=== PATIENT | male | born 1985 | race Caucasian/White ===

== ENCOUNTER 2017-04-18 13:15 | Emergency (ER) | payer BC, OTHER ==
[2017-04-18 13:19] VITALS: BP 145/92; PULSE 85; TEMP 98; BMI 24.3
[2017-04-18] MEDS ORDERED: KETOROLAC TROMETHAMINE 60 MG/2 ML VIAL IM ONE (13:54)
[2017-04-18] MEDS ORDERED: diazePAM 5 MG TABLET PO ONE (13:54)
[2017-04-18] MEDS ORDERED: KETOROLAC TROMETHAMINE 60 MG/2 ML VIAL ONE (13:55)
[2017-04-18] MEDS ORDERED: diazePAM 5 MG TABLET ONE (13:56)
--- NOTE | 2017-04-18 14:35 | PDOC ---
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 Nonradiating pain, no neurosensory deficits, no bowel or bladder difficulty incontinence or urinary retention, no saddle anesthesia, no footdrop. No history of IVDU or history of cancer. Patient also presenting with several month history of tingling to right hand. Denies any injury. REVIEW OF SYSTEMS: GENERAL: Afebrile, denies any weakness RESPIRATORY: No cough, wheezing, or hemoptysis. CARDIAC: No chest pain or shortness of breath MUSCULOSKELETAL: Pain to generalized lower back. No point tenderness. Pain worse on right than left. Tingling to the right hand. SKIN : No erythema, no bruising, no deformity. GI/: Denies any abdominal pain, no urinary difficulty, incontinence or urinary retention. RECTAL: Denies any difficulty this A.m. NEUROLOGICAL: Denies any numbness or tingling. No neurosensory deficits. PHYSICAL EXAM: GENERAL: The patient is awake, alert, and fully oriented, in no acute distress. RESPIRATORY: Lungs clear bilaterally, no rhonchi wheezes or crackles CARDIAC: S1-S2 audible, no murmur rub or gallop MUSCULOSKELETAL: Pain to generalized lower back, nonradiating, no tingling or sensory deficit. Less than 2 second cap refill, +4 popliteal and pedal pulses. GI/: Abdomen soft, nontender, nondistended. No rebound tenderness. No masses palpable. MUSCULOSKELETAL: No spinal point tenderness. Pain to the right lateral lower back, Normal reflexive and no deficits to sensation or strength. RECTAL: Normal Rectal Tone. NEUROLOGICAL: Cranial nerves II through XII grossly intact. Normal speech, normal gait. SKIN: Warm, Dry, normal turgor, no erythema, no edema no bruising. Past History - Past Medical History Allergies/Adverse Reactions: Allergies Allergy/AdvReac Type Severity Reaction Status Date / Time No Known Allergies Allergy Verified 04/18/17 13:16 Home Medications: Ambulatory Orders Albuterol Sulfate [Proair Hfa -] 2 inh IH DAILY PRN 01/11/14 Salmeterol/Fluticasone [Advair 500Mcg/50Mcg -] 1 inh PO DAILY 01/11/14 Cyclobenzaprine HCl [Flexeril 10 mg] 10 mg PO BID PRN #30 tablet MDD 2 04/18/17 Montelukast Na [Singulair -] 10 mg PO HS 04/18/17 Naproxen [Naprosyn -] 500 mg PO BID #14 tablet 04/18/17 Asthma: Yes - Immunization History Immunization Up to Date: Yes - Suicide/Smoking/Psychosocial Hx Smoking History: Current every day smoker Have you smoked in the past 12 months: Yes Number of Cigarettes Smoked Daily: 20 Information on smoking cessation initiated: No 'Breaking Loose' booklet given: 01/11/14 Hx Alcohol Use: Yes (SOCIALLY.) Drug/Substance Use Hx: No Substance Use Type: Alcohol *Physical Exam - Vital Signs Last Vital Signs Temp Pulse Resp BP Pulse Ox 98 F 85 18 145/92 99 04/18/17 13:15 04/18/17 13:15 04/18/17 13:15 04/18/17 13:15 04/18/17 13:15 ED Treatment Course - RADIOLOGY Radiology Studies Ordered: Category Date Time Status SPINE-CERVICAL [RAD] Stat Radiology 04/18/17 13:54 Ordered Medical Decision Making - Medical Decision Making 04/18/17 15:01 A/P: Patient with lower back spasm and tingling to right arm which patient has been having for several months. 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 Plan: C-spine x-rays to rule out acute injury Toradol 60 mg IM Valium 5 mg by mouth Patient states some relief of pain after medication, x-ray of C-spine is negative for acute bony injury. Patient to follow-up with orthopedics for pain, will DC patient home on Flexeril and Naprosyn with strict follow-up I discussed the physical exam findings, ancillary test results and final diagnoses with the patient. I answered all of the patient's questions. The patient was satisfied with the care received and felt comfortable with the discharge plan and treatment plan. The patient will call to arrange follow-up and will return to the Emergency Department with any new, persistent or worsening symptoms. *DC/Admit/Observation/Transfer Diagnosis at time of Disposition: Back muscle spasm, Arm neuralgia - Discharge Dispostion Disposition: HOME Condition at time of disposition: Good Admit: No - Prescriptions Prescriptions: Cyclobenzaprine HCl [Flexeril 10 mg] 10 mg PO BID PRN #30 tablet MDD 2 PRN Reason: Pain Naproxen [Naprosyn -] 500 mg PO BID #14 tablet - Referrals Referrals: Yan Luna MD [Staff Physician] - - Patient Instructions Printed Discharge Instructions: Low Back Pain Additional Instructions: 1. Please return to the emergency department with any numbness, tingling, weakness, numbness or tingling to groin or legs, or loss of bowel or bladder function. 2. Use pain medication as ordered. 3. Please is to followup in the office of Dr. Luna for evaluation within a week if no improvement. 4. Ice or heat 5. Refrain from lifting anything above 10 pounds, until pain resolved.
== END 2017-04-18 15:12 | disposition home or self-care (01) ==
LOC: JERFT 13:15
PROC: 3E0233Z Introduction of Anti-inflammatory into Muscle, Percutaneous Approach (ICD-10-PCS; principal; 2017-04-18)
DX: M62.830 Muscle spasm of back (principal); X50.9XXA Other and unspecified overexertion or strenuous movements or postures, initial encounter; Y93.64 Activity, baseball; Y92.320 Baseball field as the place of occurrence of the external cause; Y99.8 Other external cause status
CPT/HCPCS: 72050-TC; 96372; 99281-25

== ENCOUNTER 2019-03-23 12:10 | Emergency (ER) | payer SELFPAY ==
[2019-03-23 12:17] VITALS: BP 129/91; PULSE 81; TEMP 98; BMI 25.0
--- NOTE | 2019-03-23 12:53 | PDOC ---
History of Present Illness - General Chief Complaint: Lightheaded Stated Complaint: DIZZY Time Seen by Provider: 03/23/19 12:28 History Source: Patient Exam Limitations: No Limitations - History of Present Illness Initial Comments: 03/23/19 12:48 34 yo M PMH asthma, 2ppd smoker for 9 years, presenting with burning/tingling in extremities. Also complains of burning L sided chest pain that radiates into his L arm. Reports that "lights seem to be brighter". States that his symptoms began this morning shortly after waking up, and he denies ever having these symptoms before. Does endorse increased stress at work. States "I think my symptoms might be psychosomatic because I am afraid that I am having a heart attack". Specifically denies SOB, JOHN, N/V, constipation/diarrhea, fevers/chills. Endorses cough w/ congestion for past week, chronic urinary frequency. No family history of CA or clots. Past History - Travel Traveled outside of the country in the last 30 days: No Close contact w/someone who was outside of country & ill: No - Past Medical History Allergies/Adverse Reactions: Allergies Allergy/AdvReac Type Severity Reaction Status Date / Time No Known Allergies Allergy Verified 03/23/19 12:13 Home Medications: Ambulatory Orders Albuterol Sulfate [Proair Hfa -] 2 inh IH DAILY PRN 01/11/14 Montelukast Na [Singulair -] 10 mg PO HS 04/18/17 Budesonide/Formeterol Fumarate [SYMBICORT 160/4.5mcg -] 1 inh PO BID 03/23/19 Asthma: Yes COPD: No - Immunization History Immunization Up to Date: Yes - Suicide/Smoking/Psychosocial Hx Smoking History: Smoker current status UNK Have you smoked in the past 12 months: Yes Number of Cigarettes Smoked Daily: 20 'Breaking Loose' booklet given: 01/11/14 Hx Alcohol Use: Yes (SOCIALLY.) Drug/Substance Use Hx: No Substance Use Type: Alcohol Review of Systems - Review of Systems Able to Perform ROS?: Yes Constitutional: Yes: Weakness. No: Chills, Fever HEENTM: Yes: Blurred Vision ("lights seem brighter"). No: Hearing Loss, Difficulty Swallowing Respiratory: Yes: Cough, Productive cough. No: Shortness of Breath Cardiac (ROS): Yes: Chest Pain (burning, radiating down L arm) ABD/GI: No: Abdominal Distended, Constipated, Diarrhea, Difficulty Swallowing, Nausea, Vomiting : Yes: Frequency (chronic). No: Burning, Dysuria Musculoskeletal: No: Symptoms Reported Integumentary: No: Symptoms Reported Neurological: Yes: Numbness, Paresthesia. No: Headache, Tremors, Weakness, Unsteady Gait, Ataxia, Dizziness Psychiatric: Yes: Stressors Endocrine: No: Symptoms Reported Hematologic/Lymphatic: No: Symptoms Reported *Physical Exam - Vital Signs Last Vital Signs Temp Pulse Resp BP Pulse Ox 98 F 81 18 129/91 97 03/23/19 12:16 03/23/19 12:16 03/23/19 12:16 03/23/19 12:16 03/23/19 12:16 - Physical Exam General Appearance: Yes: Nourished, Appropriately Dressed. No: Apparent Distress HEENT: positive: EOMI, NAVI, Normal ENT Inspection, Nasal Congestion Neck: positive: Trachea midline, Supple. negative: Tender Respiratory/Chest: positive: Lungs Clear, Normal Breath Sounds. negative: Chest Tender, Respiratory Distress, Accessory Muscle Use Cardiovascular: positive: Regular Rhythm, Regular Rate Gastrointestinal/Abdominal: positive: Normal Bowel Sounds, Flat, Soft. negative : Tender Musculoskeletal: positive: Normal Inspection. 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 negative : Numbness ED Treatment Course - LABORATORY CBC & Chemistry Diagram: 03/23/19 13:05 03/23/19 12:51 Medical Decision Making - Medical Decision Making 03/23/19 12:56 Patient complaining of L sided burning chest pain that radiates down L arm, as well as paresthesias in the extremities. - CMP CBC trop - EKG sinus arrhythmia at 76 bpm. - likely dc home pending labs 03/23/19 13:10 Patient reassessed, states "I feel good now". 03/23/19 13:34 CXR reviewed, no focal consolidation or infiltrate seen. 03/23/19 14:03 Labs reviewed, unconcerning. *DC/Admit/Observation/Transfer Diagnosis at time of Disposition: Chest pain - Discharge Dispostion Disposition: HOME Condition at time of disposition: Improved Decision to Admit order: No - Referrals - Patient Instructions Printed Discharge Instructions: DI for Atypical Chest Pain Additional Instructions: You were seen with chest pain and tingling in your extremities. Your labs and imaging were unconcerning. Please follow up with your primary care doctor. Return to the ED if you develop worsening chest pain or shortness of breath. - Post Discharge Activity
[2019-03-23 13:27] LABS: BASO % 0.6 % (0-2.0); EOS % 2.4 % (0-4.5); HEMATOCRIT 44.1 % (35.4-49); HEMOGLOBIN 15.2 GM/dL (11.7-16.9); LYMPH % 23.9 % (8-40); MCH 31.2 pg (25.7-33.7); MCHC 34.4 g/dl (32.0-35.9); MEAN CELL VOLUME 90.7 fl (80-96); MEAN PLT VOLUME 9.1 fl (7.5-11.1); MONO % 9.8 % (3.8-10.2); NEUT % 63.3 % (42.8-82.8); PLATELET COUNT 212 K/MM3 (134-434); RBC 4.86 M/mm3 (4.00-5.60); RDW 12.5 % (11.9-15.9)
[2019-03-23 13:49] LABS: BILIRUBIN,TOTAL 0.5 mg/dL (0.2-1); BLOOD UREA NITROGEN 12.3 mg/dL (7-18); CALCIUM 9.1 mg/dL (8.5-10.1); POTASSIUM 4.5 mmol/L (3.5-5.1); TOT PROT 6.7 g/dl (6.4-8.2)
--- NOTE | 2019-03-23 14:13 | PDOC ---
Attending Attestation - Resident Resident Name: Bobbi Lin - ED Attending Attestation I have performed the following: I have examined & evaluated the patient, The case was reviewed & discussed with the resident, I agree w/resident's findings & plan - HPI HPI: 03/23/19 14:10 Healthy 34-year-old male with no significant past medical history presents with episode of lightheadedness while driving to work this morning. Patient was in his usual state of normal health, mild nasal congestion over the last day or 2, ate normal breakfast, was driving when he developed symptoms of generalized weakness with palpitations and bilateral hand tingling, never lost consciousness , never had focal neurological deficits. Never had chest pain or palpitations, at baseline has unlimited exercise tolerance. Denies any drugs or alcohol, he does smoke. no personal or family history of sudden syncope/cardiac /ACS. - Physicial Exam PE: 03/23/19 14:11 Vital signs normal Patient is seated up alert and smiling, speaking full sentences, feeling normal and without complaints Cardiac exam is regular without murmur, lungs are clear Abdomen benign Neurological exam is normal - Medical Decision Making 03/23/19 14:11 34-year-old male with lightheadedness/near syncope without red flags on history or physical exam, hemodynamically stable here without focal cardiac or neurological findings or complaints. Symptoms have completely resolved. Labs, EKG, chest x-ray are within normal limits Patient ambulating comfortably and tolerating diet Agrees with discharge plan, understands return criteria, friend at bedside. Heart Score/ECG Review #1 ECG reviewed & interpreted by me at: 12:16 General ECG Interpretation: Sinus Rhythm, Normal Rate (76), Normal Intervals ( qtc 389, pr normal, qrs normal), No acute ischemic changes
--- NOTE | 2019-03-23 14:30 | EKG ---
Test Reason : Blood Pressure : / mmHG Vent. Rate : 076 BPM Atrial Rate : 076 BPM P-R Int : 132 ms QRS Dur : 070 ms QT Int : 346 ms P-R-T Axes : -13 080 045 degrees QTc Int : 389 ms NORMAL SINUS RHYTHM WITH SINUS ARRHYTHMIA NORMAL ECG WHEN COMPARED WITH ECG OF 20-SEP-1997 15:43, PREVIOUS ECG IS PRESENT Confirmed by MD Kael, Clarence ([id number]) on 03/23/2019 2:29:57 PM Referred By: Confirmed By:Clarence Scruggs MD
== END 2019-03-23 14:16 | disposition home or self-care (01) ==
LOC: JER 12:10
DX: R07.9 Chest pain, unspecified (principal); J45.909 Unspecified asthma, uncomplicated; F17.210 Nicotine dependence, cigarettes, uncomplicated
CPT/HCPCS: 36415; 71046-TC-FY; 80053; 84484; 85025; 93005; 93010; 99284-25

== ENCOUNTER 2020-09-06 11:46 | Emergency (ER) | payer OTHER ==
[2020-09-06 11:54] VITALS: BP 132/93; PULSE 83; TEMP 98.5; BMI 26.6
[2020-09-06] MEDS ORDERED: METHOCARBAMOL 500 MG TABLET PO ONE (13:08)
[2020-09-06] MEDS ORDERED: KETOROLAC TROMETHAMINE 60 MG/2 ML VIAL IM ONE (13:08)
[2020-09-06] MEDS ORDERED: METHOCARBAMOL 500 MG TABLET ONE (13:11)
[2020-09-06] MEDS ORDERED: KETOROLAC TROMETHAMINE 30 MG/1 ML VIAL ONE (13:11)
== END 2020-09-06 13:36 | disposition home or self-care (01) ==
LOC: JERFT 11:46
PROC: 3E023GC Introduction of Other Therapeutic Substance into Muscle, Percutaneous Approach (ICD-10-PCS; principal; 2020-09-06)
DX: M54.5 Low back pain (principal)
CPT/HCPCS: 72100-TC-FY; 99284-25

== ENCOUNTER 2022-05-04 13:22 | Emergency (ER) | payer OTHER ==
[2022-05-04 13:28] VITALS: BP 144/90; PULSE 82; RESP 18; TEMP 97.7; BMI 24.3
[2022-05-04] MEDS ORDERED: ACETAMINOPHEN 1000 MG/100 ML BAG IVPB ONE (14:10)
[2022-05-04] MEDS ORDERED: ACETAMINOPHEN INJECTION 100 ML IVPB ONE (14:45)
[2022-05-04 15:39] LABS: BASO % 0.4 % (0-2.0); EOS % 2.5 % (0-4.5); HEMATOCRIT 44.1 % (35.4-49); HEMOGLOBIN 15.3 GM/dL (11.7-16.9); LYMPH % 17.9 % (8-40); MCH 31.5 pg (25.7-33.7); MCHC 34.8 g/dl (32.0-35.9); MEAN CELL VOLUME 90.6 fl (80-96); MEAN PLT VOLUME 9.4 fl (7.5-11.1); NEUT % 70.2 % (42.8-82.8); PLATELET COUNT 213 10^3/uL (134-434); RBC 4.87 M/mm3 (4.00-5.60); RDW 12.5 % (11.9-15.9); WHITE BLOOD COUNT 8.6 K/mm3 (4.0-10.0)
[2022-05-04 15:40] LABS: PH,URINE 7.5 (5.0-8.0); URINE APPEARANCE CLEAR; URINE BILIRUBIN NEGATIVE (NEGATIVE); URINE COLOR YELLOW; URINE GLUCOSE (UA) NEGATIVE (NEGATIVE); URINE KETONE NEGATIVE (NEGATIVE); URINE LEUK ESTERASE NEGATIVE (NEGATIVE); URINE NITRITE NEGATIVE (NEGATIVE); URINE PROTEIN NEGATIVE (NEGATIVE); URINE UROBILINOGEN 0.2 mg/dL (0.2-1.0)
[2022-05-04 15:50] LABS: INR 0.97 (0.83-1.09); PROTHROMBIN TIME (PATIENT) 11.1 SEC (9.7-13.0)
[2022-05-04 15:53] LABS: ACTIVATED PTT 27.3 SECONDS (25.2-36.5)
[2022-05-04] MEDS ORDERED: IBUPROFEN 600 MG TABLET (FP) PO ONE ×2 (15:56→16:02)
[2022-05-04 16:14] LABS: ALBUMIN 3.9 g/dl (3.4-5.0); BILIRUBIN,TOTAL 0.5 mg/dL (0.2-1); BLOOD UREA NITROGEN 15.5 mg/dL (7-18); CALCIUM 8.8 mg/dL (8.5-10.1); CREATININE 0.9 mg/dL (0.55-1.3); TOT PROT 6.7 g/dl (6.4-8.2)
[2022-05-04 18:09] LABS: MAGNESIUM 2.1 mg/dL (1.8-2.4)
== END 2022-05-04 17:02 | disposition home or self-care (01) ==
LOC: JER 13:22
PROC: 3E033GC Introduction of Other Therapeutic Substance into Peripheral Vein, Percutaneous Approach (ICD-10-PCS; principal; 2022-05-04)
DX: R42 Dizziness and giddiness (principal); R20.2 Paresthesia of skin; R51.9 Headache, unspecified
CPT/HCPCS: 0241U-QW; 36415; 70450-TC; 70496-TC; 70498-TC; 71045-TC-FY; 80053; 80061; 81003; 83735; 84484; 85025; 85610; 85730; 86850; 86900; 86901; 87086; 93005; 93010; 99285-25

== ENCOUNTER 2025-02-24 12:00 | Emergency (ER) | payer OTHER ==
[2025-02-24 12:08] VITALS: BMI 22.7
[2025-02-24] MEDS ORDERED: LIDOCAINE 4% PATCH TP ONE (13:43)
[2025-02-24] MEDS ORDERED: KETOROLAC TROMETHAMINE 30 MG/1 ML VIAL ONE (13:43)
[2025-02-24] MEDS ORDERED: ACETAMINOPHEN 500 MG TABLET (FP) ONE (14:21)
[2025-02-24] MEDS: KETOROLAC TROMETHAMINE 30 MG/1 ML VIAL IM ONE (14:55)
[2025-02-24] MEDS: LIDOCAINE 5% TOPICAL PATCH TP ONE (14:55)
[2025-02-24] MEDS: ACETAMINOPHEN 500 MG TABLET (FP) PO ONE (14:55)
[2025-02-24 15:03] LABS: URINE APPEARANCE CLEAR; URINE BILIRUBIN NEGATIVE (NEGATIVE); URINE COLOR YELLOW; URINE GLUCOSE (UA) NEGATIVE (NEGATIVE); URINE KETONE NEGATIVE (NEGATIVE); URINE LEUK ESTERASE NEGATIVE (NEGATIVE); URINE NITRITE NEGATIVE (NEGATIVE); URINE PROTEIN NEGATIVE (NEGATIVE); URINE UROBILINOGEN 0.2 mg/dL (0.2-1.0)
[2025-02-24 17:04] VITALS: BP 125/98; PULSE 76; RESP 20; TEMP 97.7
[2025-02-24] MEDS ORDERED: LIDOCAINE PATCH REMOVAL MC ONE (22:00)
== END 2025-02-24 17:05 | disposition home or self-care (01) ==
LOC: JER 12:00
PROC: 3E0233Z Introduction of Anti-inflammatory into Muscle, Percutaneous Approach (ICD-10-PCS; principal; 2025-02-24)
DX: M54.50 Low back pain, unspecified (principal); M51.26 Other intervertebral disc displacement, lumbar region
CPT/HCPCS: 72131-TC; 81003; 87086